=== PATIENT | female | born 1945 | race Caucasian/White ===

== ENCOUNTER 2020-05-07 09:47 | Outpatient (CLI) | payer MEDICARE, SELFPAY ==
--- NOTE | ~2020-05-07 | DEXA_ITS ---
Bone Density Report Name: Safia Hendrickson Age: 75 Sex: Female Ethnicity: White Date of : 1945 Indication: postmenopausal; height loss; Referring Provider: DAVID, ANKUR Study: Bone densitometry was performed. Exam Date: May 07, 2020 Accession number: [id number] Bone Density: Region BMD T-score Z-score Classification AP Spine (L1, L2, L3) 1.013 0.0 2.3 Normal Femoral Neck (Left) 0.816 -0.3 1.8 Normal Total Hip (Left) 0.907 -0.3 1.5 Normal Total Hip Bilateral Avg 0.918 -0.2 1.6 Normal Femoral Neck (Right) 0.813 -0.3 1.8 Normal Total Hip (Right) 0.928 -0.1 1.7 Normal World Health Organization criteria for BMD impression classify patients as: Normal (T-score at or above -1.0), Osteopenia (T-score between -1.0 and -2.5), or Osteoporosis (T-score at or below -2.5). 10-year Fracture Risk: FRAX not reported because: All T-scores for Spine Total, Hip Total, Femoral Neck at or above -1.0 Clinical Information Provided by Patient: Has used the following medications: Calcium Patient maximum height was 64 Menopause Age: 51 Onset of menses at age 14 Number of children 3 Impression: The patient has normal bone mass. Discussion: BONE DENSITY IS ABOVE THE MINIMUM DESIRABLE LEVEL AT ALL SKELETAL SITES TESTED. This patient?s bone mineral density is above the minimum desirable level (T-score -1.0 or better) at all sites measured. The patient should follow a healthful lifestyle (good nutrition with adequate calcium and vitamin D, and appropriate weight-bearing exercise). Follow-Up: Consider repeating this study in 5 years or sooner if there is some new clinical indication. Reported by: AILYN on 05/07/2020 10:27:00 AM. Reviewed, dictated and finalized at location A. [facility]
== END 2020-05-07 09:48 | disposition home or self-care (01) ==
PROVIDERS: PCP Physician Assistant; Visit Provider Physician Assistant
DX: Z78.0 Asymptomatic menopausal state (principal); Z12.31 Encounter for screening mammogram for malignant neoplasm of breast
CPT/HCPCS: 77063; 77067; 77080

== ENCOUNTER 2020-05-07 09:51 | Outpatient (CLI) | payer MEDICARE, SELFPAY ==
--- NOTE | ~2020-05-07 | MM_ITS ---
EXAMINATION: MM screening sera BI w griselda HISTORY: Screening TECHNIQUE: Craniocaudal and mediolateral oblique 3-D tomosynthesis images were obtained and synthetic 2-D images were generated. CAD analysis was submitted and interpreted. COMPARISON: Comparison to multiple prior studies sequentially, with oldest reviewed study dated 09/12. BREAST PARENCHYMAL COMPOSITION: There are scattered areas of fibroglandular density. FINDINGS: There is no evidence of suspicious mass, calcification, or architectural distortion to sugg est malignancy in either breast. There has been no suspicious interval change. IMPRESSION: 1. No mammographic evidence of malignancy. 2. Recommend routine screening mammography in one year. BI-RADS Category 1: Negative Reviewed, dictated and finalized at location A.
== END 2020-05-07 09:52 | disposition home or self-care (01) ==
PROVIDERS: PCP Physician Assistant; Visit Provider Obstetrics & Gynecology
DX: Z12.31 Encounter for screening mammogram for malignant neoplasm of breast (principal)
CPT/HCPCS: 77063; 77067

== ENCOUNTER 2021-05-11 14:07 | Outpatient (CLI) | payer MEDICARE, SELFPAY ==
--- NOTE | ~2021-05-11 | MM_ITS ---
EXAMINATION: MM screening sera BI w griselda HISTORY: Screening TECHNIQUE: Craniocaudal and mediolateral oblique 3-D tomosynthesis images were obtained and synthetic 2-D images were generated. CAD analysis was submitted and interpreted. COMPARISON: Comparison to multiple prior studies sequentially, with oldest reviewed study dated 11/15. BREAST PARENCHYMAL COMPOSITION: There are scattered areas of fibroglandular density. FINDINGS: There are developing asymmetries centrally in the right breast on CC view. There are benign bilateral breast calcifications. IMPRESSION: 1. Developing right breast asymmetries. 2. Additional mammographic views and possible breast ultrasound are recommended. BI-RADS Category 0: Incomplete: Needs additional imaging evaluation. Reviewed, dictated and finalized at location A. IMPRESSION: 1. Developing right breast asymmetries. 2. Additional mammographic views and possible breast ultrasound are recommended . BI-RADS Category 0: Incomplete: Needs additional imaging evaluation.
== END 2021-05-11 14:08 | disposition home or self-care (01) ==
LOC: ANHIMG 14:11
PROVIDERS: PCP Physician Assistant; Visit Provider Obstetrics & Gynecology
DX: Z12.31 Encounter for screening mammogram for malignant neoplasm of breast (principal); R92.8 Other abnormal and inconclusive findings on diagnostic imaging of breast
CPT/HCPCS: 77063; 77067

== ENCOUNTER 2021-05-29 12:45 | Outpatient (CLI) | payer MEDICARE, SELFPAY ==
--- NOTE | ~2021-05-29 | MMUS_ITS ---
EXAMINATION: MM diagnostic sera RT w griselda, US breast RT complete HISTORY: Follow-up right breast asymmetries TECHNIQUE: Additional 3-D tomosynthesis images of the right breast were performed and synthetic 2-D i mages were generated. CAD analysis was submitted and interpreted. High resolution Limited right breas t ultrasound was performed. COMPARISON: Comparison to multiple prior studies sequentially, with oldest reviewed study dated 04/2015. BREAST PARENCHYMAL COMPOSITION: Breast composed of scattered areas of fibroglandular density. FINDINGS: MAMMOGRAPHIC FINDINGS: There is persistent focal asymmetry medially in the right breast near the midline, middle third. No d iscrete mass identified. No suspicious calcifications or architectural distortion. ULTRASOUND: Complete right breast ultrasound: Normal heterogeneous echotexture without focal solid or cystic mass . IMPRESSION: 1. Probable benign asymmetric fibroglandular tissue medial aspect of the right breast on CC view. No sonographic correlate. 2. Recommend 6 month follow-up diagnostic right mammogram. BI-RADS category 3, probably benign findings. Reviewed, dictated and finalized at location A. IMPRESSION: 1. Probable benign asymmetric fibroglandular tissue medial aspect of the right breast on CC view. No sonographic correlate. 2. Recommend 6 month follow-up diagnostic right mammogram. BI-RADS category 3, probably benign findings.
== END 2021-05-29 12:46 | disposition home or self-care (01) ==
PROVIDERS: PCP Physician Assistant; Visit Provider Obstetrics & Gynecology
DX: R92.8 Other abnormal and inconclusive findings on diagnostic imaging of breast (principal)
CPT/HCPCS: 76641; 77061; 77065; G0279

== ENCOUNTER 2021-12-31 11:54 | Outpatient (CLI) | payer MEDICARE, SELFPAY ==
--- NOTE | ~2021-12-31 | MMUS_ITS ---
EXAMINATION: MM diagnostic sera RT w griselda, US breast RT limited HISTORY: Six-month follow-up of probable benign fibroglandular asymmetry in medial aspect of right br east on CC projection on 05/29/2021 TECHNIQUE: Additional 3-D tomosynthesis images of were performed and synthetic 2-D images were genera viki. CAD analysis was submitted and interpreted. High resolution breast ultrasound was performed. COMPARISON: 05/29/2021 diagnostic right mammogram and complete right breast ultrasound 05/11/2021 bilateral screening mammogram BREAST PARENCHYMAL COMPOSITION: There are scattered areas of fibroglandular density. FINDINGS: MAMMOGRAPHIC FINDINGS: There is an approximately 2.3 mm circumscribed opacity in the mid inner right breast. ULTRASOUND: A 2 mm sonolucency is identified at 3:00 1 cm from nipple, corresponding to the mammographic finding. IMPRESSION: 1. Benign 3 mm cyst at 3:00 2. 1 cm from nipple routine mammographic screening is recommended BI-RADS Category 2: Benign finding(s). Reviewed, dictated and finalized at location A. IMPRESSION: 1. Benign 3 mm cyst at 3:00 2. 1 cm from nipple routine mammographic screening is recommended BI-RADS Category 2: Benign finding(s).
== END 2021-12-31 11:55 | disposition home or self-care (01) ==
PROVIDERS: PCP Physician Assistant; Visit Provider Obstetrics & Gynecology
DX: R92.8 Other abnormal and inconclusive findings on diagnostic imaging of breast (principal)
CPT/HCPCS: 76642; 77061; 77065; G0279

== ENCOUNTER 2023-07-19 07:25 | Outpatient (CLI) | payer MEDICARE, SELFPAY ==
--- NOTE | ~2023-07-19 | MM_ITS ---
EXAMINATION: MM screening sera BI w griselda HISTORY: Screening mammogram TECHNIQUE: Craniocaudal and mediolateral oblique 3-D tomosynthesis images were obtained and synthetic 2-D images were generated. CAD analysis was submitted and interpreted. COMPARISON: No prior mammogram is available for comparison at this institution. BREAST PARENCHYMAL COMPOSITION: There are scattered areas of fibroglandular density. FINDINGS: There is no evidence of suspicious mass, calcification, or architectural distortion to sugg est malignancy in either breast. There has been no suspicious interval change. IMPRESSION: 1. No mammographic evidence of malignancy. 2. Recommend routine screening mammography in one year. BI-RADS Category 1: Negative Reviewed, dictated and finalized at location A. [facility]
== END 2023-07-19 07:26 | disposition home or self-care (01) ==
PROVIDERS: PCP Physician Assistant; Visit Provider Obstetrics & Gynecology
DX: Z12.31 Encounter for screening mammogram for malignant neoplasm of breast (principal)
CPT/HCPCS: 77063; 77067